=== PATIENT | male | born 1990 | race African-American/Black ===

== ENCOUNTER 2019-03-22 08:52 | Emergency (ER) | payer OTHER ==
[~2019-03-22] VITALS: Ht 167.6 cm; Wt 84.8 kg
[2019-03-22] MEDS ORDERED: ZYRTTAB8 PO (09:59)
[2019-03-22] MEDS ORDERED: MUCI600T31 PO (09:59)
[2019-03-22 10:08] VITALS: BP 121/69
== END 2019-03-22 10:11 | disposition home or self-care (01) ==
LOC: M ED 08:52
DX: H65.03 Acute serous otitis media, bilateral (principal); J30.9 Allergic rhinitis, unspecified

== ENCOUNTER → 2020-06-17 | Outpatient (CLI) | payer SELFPAY ==
[~2020-06-17] MED LIST: MUCI600T31 PO; ZYRTTAB8 PO
== END ==
LOC: M LABSMTC 10:05
PROVIDERS: ATTEND Pediatrics
DX: Z20.828 Contact with and (suspected) exposure to other viral communicable diseases (principal)

== ENCOUNTER 2021-05-01 08:48 | Emergency (ER) | payer OTHER, SELFPAY ==
[~2021-05-01] VITALS: Ht 167.6 cm; Wt 94.0 kg
[2021-05-01] MEDS ORDERED: IBUP80TA PO (09:00)
--- OUTSIDE RECORDS SUMMARY | 2021-05-01 09:02 | CCD ---
Author Author [facility] Organization [facility] Address Unknown Phone Unavailable Care Team Providers Care Superintendent Quarry Name Role Phone Sharif PAC, Esdras Unavailable Unavailable Sharif PAC, Esdras Unavailable Unavailable Sharif PAC, Esdras Unavailable Unavailable [place] PAC, Esdras Unavailable Unavailable [place] PAC, Esdras Unavailable Unavailable Sharif PAC, Esdras Unavailable Unavailable [place] PAC, Esdras Unavailable Unavailable Sharif PAC, Esdras Unavailable Unavailable Re-disclosure Warning The records that you are about to access may contain information from federally-assisted alcohol or drug abuse programs. If such information is present, then the following federally mandated warning applies: This information has been disclosed to you from records protected by federal confidentiality rules (42 CFR part 2). The federal rules prohibit you from making any further disclosure of this information unless further disclosure is expressly permitted by the written consent of the person to whom it pertains or as otherwise permitted by 42 CFR part 2. A general authorization for the release of medical or other information is NOT sufficient for this purpose. The Federal rules restrict any use of the information to criminally investigate or prosecute any alcohol or drug abuse patient.The records that you are about to access may contain highly sensitive health information, the redisclosure of which is protected by Article 27-F of the [facility] Public Health law. If you continue you may have access to information: Regarding HIV / AIDS; Provided by facilities licensed or operated by the [facility] Office of Mental Health; or Provided by the [facility] Office for People With Developmental Disabilities. If such information is present, then the following [facility] mandated warning applies: This information has been disclosed to you from confidential records which are protected by state law. State law prohibits you from making any further disclosure of this information without the specific written consent of the person to whom it pertains, or as otherwise permitted by law. Any unauthorized further disclosure in violation of state law may result in a fine or usp sentence or both. A general authorization for the release of medical or other information is NOT sufficient authorization for further disc losure. Encounters Encounter Providers Location Date Indications Data Source(s ) Outpatient 04/13/2021 09:02:46 AM EDT - 021 10:08:26 AM EDT [facility] ([facility]) Outpatient Attender: Esdras Olguin PAC 07/20/2020 08 :00:00 PM EST INSOMNIA,SNORING,FATIGUE [facility] INSOMNIA,SNORING,FATIGUE Immunizations Vaccine Date Status Description Data Source(s) COVID-19 VACCINE Pfizer 04/29/2021 12:00:00 AM EDT completed [facility] Vaccine Series Complete: NOThis Data was Submitted to [facility] Via [facility]. Medications No Information Insurance Providers Payer name Policy type / Coverage type Policy ID Covered green party ID Covered green party's relationship to lacey Policy Lacey Plan Information / [id number] Self 01 [id number] SELF PAY ONLY [id number] [facility] ACTIVE DUTY [id number] Problems, Conditions, and Diagnoses No Information Surgeries/Procedures No Information Results ID Date Data Source [id number] 04/13/2021 09:30:00 AM EDT [facility] Name Value Range Interpretation Code Description Data Sharona rce(s) Supporting Document(s) SARS-CoV-2 RNA Resp Ql BRITTANY+probe NOT DETECTED [facility] This lab was ordered by [facility] and reported by [facility]. ID Date Data Source [id number] 06/17/2020 12:00:00 AM EST [facility] Name Value Range Interpretation Code Description Data Sharona rce(s) Supporting Document(s) SARS-CoV-2 (COVID-19) RNA [Presence] in Respiratory specimen by BRITTANY with probe detection [facility] This lab was ordered by [facility] and reported by [employer] Procedure Social History No Information
--- OUTSIDE RECORDS SUMMARY | 2021-05-01 09:28 | CCD ---
Author Author [facility] Organization [facility] Address Unknown Phone Unavailable Care Team Providers Care Patient Placement Coordinator Name Role Phone Sharif PAC, Esdras Unavailable Unavailable Sharif PAC, Esdras Unavailable Unavailable Sharif PAC, Esdras Unavailable Unavailable [place] PAC, Esdras Unavailable Unavailable [place] PAC, Esdras Unavailable Unavailable Sharif PAC, Esdras Unavailable Unavailable [place] PAC, Esdras Unavailable Unavailable Sharif PAC, Esdras [...] is protected by Article 27-F of the [facility] Public Health law. If you continue you may have access to information: Regarding HIV / AIDS; Provided by facilities licensed or operated by the [facility] Office of Mental Health; or Provided by the [facility] Office for People With Developmental Disabilities. If such information is present, then the following [facility] mandated warning applies: This information has been [...] law may result in a fine or senior living sentence or both. A general authorization for the release of medical or other information is NOT sufficient authorization for further disc losure. Encounters Encounter Providers Location Date Indications Data Source(s ) Outpatient 04/13/2021 09:02:46 AM EDT - 021 10:08:26 AM EDT [facility] ([facility]) Outpatient Attender: Esdras Olguin PAC 07/20/2020 08 :00:00 PM EST INSOMNIA,SNORING,FATIGUE [facility] INSOMNIA,SNORING,FATIGUE Immunizations Vaccine Date Status Description Data Source(s) COVID-19 VACCINE Pfizer 04/29/2021 12:00:00 AM EDT completed [facility] Vaccine Series Complete: NOThis Data was Submitted to [facility] Via [employer]. Medications No Information Insurance Providers Payer name Policy type / Coverage type Policy ID Covered libertarian ID Covered libertarian's relationship to lacey Policy Lacey Plan Information / [id number] Self 01 [id number] SELF PAY ONLY [id number] [facility] ACTIVE DUTY [id number] Problems, Conditions, and Diagnoses No Information Surgeries/Procedures No Information Results ID Date Data Source [id number] 04/13/2021 09:30:00 AM EDT [facility] Name Value Range Interpretation Code Description Data Sharona rce(s) Supporting Document(s) SARS-CoV-2 RNA Resp Ql BRITTANY+probe NOT DETECTED [facility] This lab was ordered by [facility] and reported by [facility]. ID Date Data Source [id number] 06/17/2020 12:00:00 AM EST [facility] Name Value Range Interpretation Code Description Data Sharona rce(s) Supporting Document(s) SARS-CoV-2 (COVID-19) RNA [Presence] in Respiratory specimen by BRITTANY with probe detection [facility] This lab was ordered by [facility] and reported by [employer] Procedure Social History No Information
[2021-05-01 10:05] LABS: RSV AMPLIFICATION NEGATIVE (NEGATIVE)
[2021-05-01] MEDS ORDERED: AUGM875T28 PO (10:35)
[2021-05-01 10:41] VITALS: BP 124/70
== END 2021-05-01 10:48 | disposition home or self-care (01) ==
LOC: M ED 08:48
DX: H66.93 Otitis media, unspecified, bilateral (principal); F17.210 Nicotine dependence, cigarettes, uncomplicated

== ENCOUNTER → 2021-07-11 | Outpatient (REF) ==
[~2021-07-11] MED LIST changes: +AUGM875T28 PO; +IBUP80TA PO
== END ==
LOC: M LABSMTC 09:08
PROVIDERS: ATTEND Pediatrics
DX: Z11.52 Encounter for screening for COVID-19 (principal)

== ENCOUNTER 2021-10-02 21:32 | Emergency (ER) | payer OTHER ==
[2021-10-02 21:32] VITALS: BP 122/80
[2021-10-02 23:12] LABS: RSV AMPLIFICATION NEGATIVE (NEGATIVE)
== END 2021-10-03 00:10 | disposition home or self-care (01) ==
LOC: M ED 21:32
DX: J06.9 Acute upper respiratory infection, unspecified (principal); H65.03 Acute serous otitis media, bilateral

== ENCOUNTER 2021-11-28 08:35 | Emergency (ER) | payer OTHER ==
[~2021-11-28] VITALS: Ht 170.2 cm; Wt 91.4 kg
[2021-11-28] MEDS ORDERED: ACETAMINOPHEN 500 MG TAB PO ONE (11:00)
[2021-11-28] MEDS ORDERED: ONDANSETRON 4MG ORAL DISINTEGRATING TAB PO ONE (11:00)
[2021-11-28] MEDS ORDERED: ONDA4TAB6 PO (11:34)
[2021-11-28 11:42] VITALS: BP 132/76
== END 2021-11-28 12:08 | disposition home or self-care (01) ==
LOC: M ED 08:35
DX: J06.9 Acute upper respiratory infection, unspecified (principal); B34.9 Viral infection, unspecified; R11.2 Nausea with vomiting, unspecified; R19.7 Diarrhea, unspecified; R10.9 Unspecified abdominal pain

== ENCOUNTER 2022-11-04 18:39 | Emergency (ER) | payer OTHER ==
[~2022-11-04] VITALS: Ht 167.6 cm; Wt 92.3 kg
[~2022-11-04 18:39] MED LIST changes: +ONDA4TAB6 PO
[2022-11-04] MEDS ORDERED: PROA1AER2 (18:45)
[2022-11-04 19:40] LABS: RSV AMPLIFICATION NEGATIVE (NEGATIVE)
[2022-11-04] MEDS ORDERED: IPRATROPIUM 0.5MG/ALBUTEROL 2.5MG INH SOL UD 3ML (DUONEB) NEB ONE (23:35)
[2022-11-04] MEDS ORDERED: methylPREDNISolone 125MG 2ML VIAL IV ONE (23:35)
[2022-11-04 23:58] LABS: BASO # 0.1 10^3/uL (0.0-0.2); BASO % 0.8 % (0.0-1.0); EOS # 0.9 10^3/uL (0.0-0.5); EOS % 11.5 % (0.0-3.0); HEMATOCRIT 40.4 % (42.0-52.0); HEMOGLOBIN 13.7 g/dl (13.5-17.5); LYMPH # 2.8 10^3/uL (1.5-5.0); LYMPH % 35.6 % (24.0-44.0); MEAN CORPUSCULAR HEMOGLOBIN 28.7 pg (27.0-33.0); MEAN CORPUSCULAR HGB CONC 33.9 g/dl (32.0-36.5); MEAN CORPUSCULAR VOLUME 84.5 fl (80.0-96.0); MONO # 0.6 10^3/uL (0.0-0.8); MONO % 7.8 % (2.0-8.0); NEUTROPHILS # 3.4 10^3/uL (1.5-8.5); PLATELET COUNT, AUTOMATED 234 10^3/uL (150-450); RED BLOOD COUNT 4.78 10^6/uL (4.30-6.10); WHITE BLOOD COUNT 7.8 10^3/uL (4.0-10.0)
[2022-11-05 00:12] VITALS: O2SAT 93
[2022-11-05 00:21] LABS: BLOOD UREA NITROGEN 20 MG/DL (9-23); CALCIUM LEVEL 9.3 MG/DL (8.5-10.1); CARBON DIOXIDE LEVEL 26 MMOL/L (20-31); CHLORIDE LEVEL 104 MMOL/L (98-107); CK-MB VALUE MASS < 1.0 NG/ML (<3.6); CPK CREATINE PHOSPHOKINASE 249 U/L (46-171); CREATININE FOR GFR 1.11 MG/DL (0.70-1.30); GLOMERULAR FILTRATION RATE > 60.0 (>60); GLUCOSE, FASTING 105 MG/DL (60-100); POTASSIUM SERUM 4.1 MMOL/L (3.5-5.1); SODIUM LEVEL 136 MMOL/L (136-145)
[2022-11-05] MEDS ORDERED: PRED20TA PO (00:28)
[2022-11-05] MEDS ORDERED: MONT-5 PO (00:32)
[2022-11-05 00:45] VITALS: BP 150/63
== END 2022-11-05 00:59 | disposition home or self-care (01) ==
LOC: M ED 18:39
DX: J45.901 Unspecified asthma with (acute) exacerbation (principal); R00.1 Bradycardia, unspecified; I49.49 Other premature depolarization; Z79.52 Long term (current) use of systemic steroids; Z79.899 Other long term (current) drug therapy
CPT/HCPCS: 36415; 71046; 80048; 82550; 82553; 84484; 85025; 87631; 93005; 94640; 96374; 99284; J2930

== ENCOUNTER → 2023-02-10 | Outpatient (CLI) | payer OTHER ==
[~2023-02-10] MED LIST changes: +MONT-5 PO; +PRED20TA PO; +PROA1AER2
== END ==
LOC: M RAD 10:58
PROVIDERS: ATTEND Nurse Practitioner Family
DX: R06.02 Shortness of breath (principal)

== ENCOUNTER 2023-06-02 21:33 | Emergency (ER) | payer OTHER ==
[~2023-06-02] VITALS: Ht 167.6 cm; Wt 93.6 kg
[2023-06-02 21:34] VITALS: TEMP 98.6; O2SAT 98
[2023-06-02 23:30] VITALS: BP 125/59
== END 2023-06-03 | disposition home or self-care (01) ==
LOC: M ED 21:33
DX: S83.095A Other dislocation of left patella, initial encounter (principal); F10.10 Alcohol abuse, uncomplicated; Z88.6 Allergy status to analgesic agent; Z79.52 Long term (current) use of systemic steroids; Z79.899 Other long term (current) drug therapy

== ENCOUNTER → 2023-06-12 | Outpatient (CLI) | payer OTHER | LOC: M PLAIMG 08:18 | PROVIDERS: ATTEND Student in an Organized Health Care Education/Training Program | DX: M25.362 Other instability, left knee (principal) ==

== ENCOUNTER → 2024-04-22 | Outpatient (CLI) | payer OTHER ==
[~2024-04-22] MED LIST changes: +METHACHOLINE KIT (6 VIAL.NEB PREMIX) INH ONE; +ONDA-282 PO; -ONDA4TAB6 PO
== END ==
LOC: M CARPUL 10:51
PROVIDERS: ATTEND Physician Assistant
DX: R06.00 Dyspnea, unspecified (principal)
CPT/HCPCS: 94070; J7674

== ENCOUNTER 2025-07-02 09:25 | Emergency (ER) | payer OTHER ==
[~2025-07-02] VITALS: Ht 167.6 cm; Wt 94.4 kg
[~2025-07-02 09:25] MED LIST changes: -METHACHOLINE KIT (6 VIAL.NEB PREMIX) INH ONE
[2025-07-02] MEDS: ACETAMINOPHEN 500 MG TAB PO ONE (11:35)
[2025-07-02] MEDS ORDERED: OSEL75CA PO (11:45)
[2025-07-02 11:55] VITALS: BP 139/64; TEMP 100; O2SAT 92
[2025-07-02] MEDS: OSELTAMIVIR PHOSPHATE 75 MG CAP PO ONE (12:04)
== END 2025-07-02 12:08 | disposition home or self-care (01) ==
LOC: M ED 09:25
DX: J09.X9 Influenza due to identified novel influenza A virus with other manifestations (principal); B34.8 Other viral infections of unspecified site; J45.909 Unspecified asthma, uncomplicated; Z88.2 Allergy status to sulfonamides; Z88.6 Allergy status to analgesic agent; Z79.51 Long term (current) use of inhaled steroids